=== PATIENT | female | born 1955 | race African-American/Black ===

== ENCOUNTER → 2018-11-22 | Outpatient (CLI) | payer BC ==
[2015-11-16 05:49] VITALS: BP 148/73
[~2018-11-22] MED LIST: ALBU2.5V5 IH; ALBU8.5H6 IH; ASPI325T8 PO; BUDE10.2 IH; CARV12.511 PO; FURO20TA3 PO; HYDR28OI2 TP; INSU100I17 SQ; INSU100V8 SQ; LOSA-73 PO; LOSA25TA PO; PANT40TA77 PO; POTA20TA4 PO; SUCR1ORA11 PO
--- NOTE | 2018-11-28 14:39 | RAD ---
DATE: 11/22/2018 1:58 PM EXAM: DIGITAL SCREEN BILAT W/CAD HISTORY: routine screening evaluation. COMPARISON: None available Bilateral full field craniocaudal and mediolateral oblique images as well as exaggerated CC images were obtained using digital technique. This study was interpreted with the benefit of Computerized Aided Detection (CAD). Breast Density: FATTY The Breast Parenchyma is primarily fatty replaced. Breast parenchyma level density A. FINDINGS: Benign calcifications are present. Multiple bilateral well-circumscribed round breast masses are seen laterally. Otherwise, no microcalcifications or architectural distortion is present. The visualized axillae are unremarkable. IMPRESSION: Bilateral well-circumscribed breast masses, findings for which additional imaging is advised. BI-RADS CATEGORY: 0 INCOMPLETE: NEEDS ADDITIONAL IMAGING EVALUATION AND/OR PRIOR MAMMOGRAMS FOR COMPARISON. RECOMMENDED FOLLOW-UP: ADD ADDITIONAL IMAGING The patient will be contacted to submitted her prior imaging, performed at an outside institution, for the purposes of comparison. If the patient is unable to submit the images in a timely manner (1-2 weeks), then the recommendation would be for additional imaging to be performed. PQRS compliance statement: Patient information was entered into a reminder system with a target due date for the next mammogram. Mammography is a sensitive method for finding small breast cancers, but it does not detect them all and is not a substitute for careful clinical examination. A negative mammogram does not negate a clinically suspicious finding and should not result in delay in biopsying a clinically suspicious abnormality. "Our facility is accredited by the [employer] Mammography [employer]."
== END | disposition home or self-care (01) ==
LOC: MAMMO 13:55
PROVIDERS: ATTEND Family Medicine
DX: Z12.31 Encounter for screening mammogram for malignant neoplasm of breast (principal); N63.10 Unspecified lump in the right breast, unspecified quadrant; N63.20 Unspecified lump in the left breast, unspecified quadrant
CPT/HCPCS: 77067

== ENCOUNTER → 2019-03-28 | Outpatient (CLI) | payer BC, MEDICARE ==
[2015-11-16 05:49] VITALS: BP 148/73
[~2019-03-28] MED LIST changes: -SUCR1ORA11 PO; +SUCR1ORA14 PO
--- NOTE | 2019-03-28 19:22 | RAD ---
DATE: 03/28/2019 EXAM: DIGITAL DIAGNOSTIC BILATERAL HISTORY: Abnormal mammogram COMPARISON: 11/22/2018 mammogram This study was interpreted with the benefit of Computerized Aided Detection (CAD). Breast Density: SCATTERED The breast parenchyma shows scattered fibroglandular densities. Breast parenchyma level B. FINDINGS: Persistence of masses on spot compression is noted at the upper outer aspect of the right and left breast. Fatty hilum is suggested as respectively lymph nodes. IMPRESSION: Persistence of masses. These may represent intramammary lymph nodes. BI-RADS CATEGORY: 3 PROBABLY BENIGN FINDING(S)-SHORT INTERVAL FOLLOW-UP SUGGESTED RECOMMENDED FOLLOW-UP: 12M 12 MONTH FOLLOW-UP. Follow-up at the time of annual mammographic evaluation is recommended to assess stability. Ultrasound may be needed at that time. PQRS compliance statement: Patient information was entered into a reminder system with a target due date for the next mammogram. Mammography is a sensitive method for finding small breast cancers, but it does not detect them all and is not a substitute for careful clinical examination. A negative mammogram does not negate a clinically suspicious finding and should not result in delay in biopsying a clinically suspicious abnormality. "Our facility is accredited by the [employer] Mammography Program."
== END | disposition home or self-care (01) ==
LOC: MAMMO 09:55
PROVIDERS: ATTEND Nurse Practitioner Family
DX: R92.2 Inconclusive mammogram (principal); N63.21 Unspecified lump in the left breast, upper outer quadrant; N63.11 Unspecified lump in the right breast, upper outer quadrant
CPT/HCPCS: 77066

== ENCOUNTER 2020-10-17 23:36 | Emergency (ER) | payer MEDICARE, BC ==
[~2020-10-17] VITALS: Ht 172.7 cm; Wt 163.5 kg
--- NOTE | 2020-10-18 01:47 | PHYS DOC ---
Past Medical History Past Medical History: CHF, COPD, Diabetes-Type II, High Cholesterol, Heart Disease, Hypertension Additional Past Medical Histor: sleep apnea, bradycardia, emphysema, toe amputation Past Surgical History: Hysterectomy, Pacemaker Additional Past Surgical Histo: RIGHT FOOT TOE AMPUTATION Smoking Status: Never Smoker Alcohol Use: None Drug Use: None General Adult EDM: Chief Complaint: MULTIPLE COMPLAINTS HPI: HPI: Patient is a 65 year old female who presented to ER with multiple complaints. Patient says she has been having nonproductive cough, some nasal congestion, nasal drainage for about 2 weeks. Patient has history of emphysema and COPD, she is not on oxygen at home. Patient also complains of pain with urination for 1 week. She denies any abdominal pain, no nausea vomiting, no chest pain, no fever. Patient denies COVID-19 exposure. Patient says he is not vaccinated for COVID-19 Review of Systems: Review of Systems: Constitutional: Denies fever or chills. [] Eyes: Denies change in visual acuity. [] HENT: Positive for nasal congestion, no sore throat Respiratory: Positive for cough, no trouble breathing Cardiovascular: Denies chest pain or edema. [] GI: Denies abdominal pain, nausea, vomiting, bloody stools or diarrhea. [] : Positive for pain with urination and frequency. Musculoskeletal: Denies back pain or joint pain. [] Integument: Denies rash. [] Neurologic: Denies headache, focal weakness or sensory changes. [] Endocrine: Denies polyuria or polydipsia. [] Lymphatic: Denies swollen glands. [] Psychiatric: Denies depression or anxiety. [] Heart Score: C/O Chest Pain: N/A Risk Factors: Risk Factors: DM, Current or recent (<one month) smoker, HTN, HLP, family history of CAD, obesity. Risk Scores: Score 0 - 3: 2.5% MACE over next 6 weeks - Discharge Home Score 4 - 6: 20.3% MACE over next 6 weeks - Admit for Clinical Observation Score 7 - 10: 72.7% MACE over next 6 weeks - Early Invasive Strategies Allergies: Allergies: Allergies Coded Allergies Type Severity Reaction Last Updated Verified lisinopril Adverse Reaction Intermediate Nausea and Vomiting 08/13/14 Yes Physical Exam: PE: Constitutional: Well developed, well nourished, no acute distress, non-toxic appearance. [] HENT: Normocephalic, atraumatic, bilateral external ears normal, oropharynx moist, no oral exudates, nose normal. [] Eyes: PERRLA, EOMI, conjunctiva normal, no discharge. [] Neck: Normal range of motion, no tenderness, supple, no stridor. [] Cardiovascular:Heart rate regular rhythm, no murmur [] Lungs & Thorax: Bilateral breath sounds with mild expiratory wheezing to auscultation . No respiratory distress Abdomen: Bowel sounds normal, soft, no tenderness, no masses, no pulsatile masses. [] Skin: Warm, dry, no erythema, no rash. [] Back: No tenderness, no CVA tenderness. [] Extremities: No tenderness, no cyanosis, no clubbing, ROM intact, no edema. [] Neurologic: Alert and oriented X 3, normal motor function, normal sensory funct ion, no focal deficits noted. [] Psychologic: Affect normal, judgement normal, mood normal. [] Current Patient Data: Vital Signs: Vital Signs Date Time Temp Pulse Resp B/P (MAP) Pulse Ox O2 Delivery O2 Flow Rate FiO2 10/18/20 00:25 98.9 67 18 183/78 (113) 99 Room Air 98.9 EKG: EKG: EKG was done at 1:20 AM, heart rate of 64 bpm, sinus rhythm, left bundle branch block, left axis deviation no ST segment elevation. Radiology/Procedures: Radiology/Procedures: [][facility] [address] [place], [place] [id number] IMAGING REPORT Signed PATIENT: SHAMA BROWN MACCOUNT: [id number] : 1955 LOCATION: ER AGE: 65 SEX: F EXAM STATUS: REG ER ORD. PHYSICIAN: BRONSON DURAND DO REASON: cough for two weeks PROCEDURE: PORTABLE CHEST 1V XR CHEST 1V INDICATION: cough for two weeks COMPARISON STUDY: None. FINDINGS: Life Support Devices: Left pectoral transvenous dual-chamber ICD/pacemaker. Lungs: Normal lung volume. No focal airspace disease. Normal pulmonary vasculature. Pleura: No pleural effusion or pneumothorax. Heart and Mediastinum: Normal cardiomediastinal silhouette and great vessels. IMPRESSION: No acute cardiopulmonary process. Electronically signed by: Radha Crowe MD (10/18/2020 2:00 AM) [facility] DICTATED and SIGNED BY: RADHA CROWE MD DATE: 10/18/20 [id number] 0 Course & Med Decision Making: Course & Med Decision Making Pertinent Labs and Imaging studies reviewed. (See chart for details) Patient is a 65-year-old female who present to ER due to upper respiratory symptoms and painful with urination. Her lab work showed she had evidence of urinary tract infection. She had chronic renal insufficiency, her creatinine level is elevated, patient says she is scheduled to see her family physician for reevaluation sometime next week. Patient does not want to stay in the hospital. Patient wanted to go home with a prescription to treat her UTI. Patient states she will call her family physician on Wednesday to see him and then she will ask for referral to see a kidney doctor. Patient's daughter was here with her. Erica Disclaimer: Erica Disclaimer: This electronic medical record was generated, in whole or in part, using a voice recognition dictation system. Departure Departure Impression: Primary Impression: Urinary tract infection Additional Impressions: Upper respiratory infection Chronic renal disease Disposition: HOME / SELF CARE / HOMELESS Condition: STABLE Referrals: MINERVA RAYO MD (PCP) Please follow up with your doctor on Wednesday for reevaluation. You will need a referral from your doctor to a kidney specialist about your kidney problem next week. Patient Instructions: Chronic Renal Insufficiency, Upper Respiratory Infection, Adult, Urinary Tract Infection Additional Instructions: Thank you for visiting our Emergency Department. We appreciate you trusting us with your care. If any additional problems come up don't hesitate to return to visit us. Please follow up with your primary care provider so they can plan additional care if needed and know about the problem that you had. If symptoms worsen come back to the Emergency Department. Any concerning symptoms that start such as chest pain, shortness of air, weakness or numbness on one side of the body, running high fevers or any other concerning symptoms return to the ER. Scripts Cephalexin (CEPHALEXIN) 500 Mg Tablet 1 TAB PO QID for 7 Days, #28 TAB Prov: BRONSON DURAND DO 10/18/20 BRONSON DURAND DO Oct 18, 2020 01:47
--- NOTE | 2020-10-18 02:02 | RAD ---
XR CHEST 1V INDICATION: cough for two weeks COMPARISON STUDY: None. FINDINGS: Life Support Devices: Left pectoral transvenous dual-chamber ICD/pacemaker. Lungs: Normal lung volume. No focal airspace disease. Normal pulmonary vasculature. Pleura: No pleural effusion or pneumothorax. Heart and Mediastinum: Normal cardiomediastinal silhouette and great vessels. IMPRESSION: No acute cardiopulmonary process. Electronically signed by: Arvind Crowe MD (10/18/2020 2:00 AM) [facility]
[2020-10-18 02:11] LABS: BASO # 0.1 x10^3/uL (0.0-0.2); BASO % 1 % (0-3); EOS # 0.3 x10^3/uL (0.0-0.7); EOS % 3 % (0-3); HEMATOCRIT 30.2 % (36.0-47.0); HEMOGLOBIN 9.7 g/dL (12.0-15.5); LYMPH # 2.9 x10^3/uL (1.0-4.8); LYMPH % 30 % (24-48); MEAN CORPUSCULAR HEMOGLOBIN 29 pg (25-35); MEAN CORPUSCULAR HGB CONC 32 g/dL (31-37); MEAN CORPUSCULAR VOLUME 92 fL (79-100); MONO # 0.7 x10^3/uL (0.0-1.1); MONO % 7 % (0-9); NEUT # 5.9 x10^3/uL (1.8-7.7); NEUT % 60 % (31-73); PLATELET COUNT 249 x10^3/uL (140-400); RED BLOOD COUNT 3.28 x10^6/uL (3.50-5.40); RED CELL DISTRIBUTION WIDTH 16.3 % (11.5-14.5); WHITE BLOOD COUNT 9.8 x10^3/uL (4.0-11.0)
[2020-10-18 02:19] LABS: CALCIUM 7.9 mg/dL (8.5-10.1); CREATININE 3.1 mg/dL (0.6-1.0); GFR 18.1
[2020-10-18 02:20] LABS: BILIRUBIN,URINE NEGATIVE (NEG); CLARITY,URINE CLOUDY; COLOR,URINE YELLOW; NITRITE,URINE NEGATIVE (NEG); PROTEIN,URINE >=300 mg/dL (NEG-TRACE); UROBILINOGEN,URINE 0.2 mg/dL (0.2 mg/dL)
[2020-10-18 02:26] LABS: ALBUMIN 2.7 g/dL (3.4-5.0); ALBUMIN/GLOBULIN RATIO 0.8 (1.0-1.7); MAGNESIUM 1.9 mg/dL (1.8-2.4); TOTAL BILIRUBIN 0.3 mg/dL (0.2-1.0); TOTAL PROTEIN 5.9 g/dL (6.4-8.2)
[2020-10-18 02:34] LABS: BACTERIA,URINE FEW /HPF (0-FEW); WBC,URINE TNTC /HPF (0-4)
[2020-10-18] MEDS ORDERED: CALCIUM GLUCONATE 1,000 MG/10 ML VIAL. IVP ONE (03:00)
--- NOTE | 2020-10-18 03:04 | EKG ---
[facility] [address] [place] [address] Test Date: 2020-10-18 Test Time: 01:14:52 Pat Name: SHAMA BROWN Department: Room: Gender: F Set Up Inspector: : 1955 Requested By: BRONSON DURAND Order Number: [id number] Reading MD: Measurements Intervals [place] Rate: 64 P: 0 PA: 160 QRS: -41 QRSD: 128 T: -80 QT: 428 QTc: 446 Interpretive Statements SINUS RHYTHM ABNORMAL LEFT AXIS DEVIATION LEFT BUNDLE BRANCH BLOCK ABNORMAL ECG RI6.02 No previous ECG available for comparison
[2020-10-18] MEDS ORDERED: cefTRIAXone IV Push 1 GM VIAL. IVP ONE (03:30)
[2020-10-18] MEDS ORDERED: CEPH500T PO (03:58)
[2020-10-18 04:01] VITALS: BP 169/79
== END 2020-10-18 04:11 | disposition home or self-care (01) ==
LOC: ER 23:36
DX: N39.0 Urinary tract infection, site not specified (principal); J06.9 Acute upper respiratory infection, unspecified; E11.22 Type 2 diabetes mellitus with diabetic chronic kidney disease; I13.0 Hypertensive heart and chronic kidney disease with heart failure and stage 1 through stage 4 chronic kidney disease, or unspecified chronic kidney disease; N18.9 Chronic kidney disease, unspecified; I50.9 Heart failure, unspecified; J44.9 Chronic obstructive pulmonary disease, unspecified; Z90.710 Acquired absence of both cervix and uterus; Z95.0 Presence of cardiac pacemaker; Z88.8 Allergy status to other drugs, medicaments and biological substances
CPT/HCPCS: 36415; 71045; 80053; 81001; 83690; 83735; 83880; 84484; 85025; 87086; 93005; 96374; 96375; 99285; J0610; J0696; 87077